=== PATIENT | female | born 1985 | race African-American/Black ===

== ENCOUNTER 2021-09-04 15:09 | Emergency (ER) | payer MEDICAID ==
[~2021-09-04] VITALS: Ht 157.5 cm; Wt 77.0 kg
[2021-09-04 15:12] VITALS: BP 165/126
[2021-09-04] MEDS ORDERED: IPRATROPIUM BROMIDE (0.02%) 0.5MG/2.5ML NEB HHN STA (15:19)
[2021-09-04] MEDS ORDERED: METHYLPREDNISOLONE SOD SUCC 125 MG/2 ML VIAL IM STA (15:19)
[2021-09-04] MEDS ORDERED: ALBUTEROL (0.083%) 2.5MG/3ML NEB HHN STA (15:19)
[2021-09-04] MEDS ORDERED: ALBU18HF2 INH (18:25)
[2021-09-04] MEDS ORDERED: P50 MT (18:25)
[2021-09-04] MEDS ORDERED: BUDE6.9H INH ×3 (18:25→18:31)
[2021-09-04] MEDS ORDERED: FLUT1DIS3 INH (18:29)
== END 2021-09-04 18:30 | disposition home or self-care (01) ==
LOC: ER 15:09
DX: J45.901 Unspecified asthma with (acute) exacerbation (principal); I10 Essential (primary) hypertension
CPT/HCPCS: 71045; 93005; 94640; 96372; 99283; J2930; Z7610